=== PATIENT | female | born 1950 | race Caucasian/White ===

== ENCOUNTER 2020-02-24 08:20 | Inpatient (IN) ==
[~2020-02-24 08:20] MED LIST: Buffered Lidocaine 1% SYRIN 1 ml INTRADERM ONE; Dexamethasone IV 4 MG/ML VIAL 1 ml VIAL IV SLOW PU ONE; Famotidine IV 10 MG/ML 2 ml VIAL (20 mg) IV ONE; Lactated Ringers 1000 ml BAG 1,000 ML IV SCH
[2020-02-24] MEDS ORDERED: Famotidine IV 10 MG/ML 2 ml VIAL (20 mg) ONE (08:48)
[2020-02-24] MEDS ORDERED: ceFAZolin 2 GM PREMIX 2 GM/50 ML BAG ONE (08:48)
[2020-02-24] MEDS ORDERED: Dexamethasone IV 4 MG/ML VIAL 1 ml VIAL ONE (08:48)
[2020-02-24] MEDS ORDERED: Acetaminophen IV 1 GM/100ML 1,000 MG/100 ML VIAL IVPB ONE (10:07)
[2020-02-24] MEDS ORDERED: DiMENhydriNATE IV 50 mg/ml 1 ml VIAL IV PUSH PRN (10:07)
[2020-02-24] MEDS ORDERED: HYDROmorphone 1 MG/1 ML SYRINGE IV PRN (10:07)
[2020-02-24] MEDS ORDERED: fentaNYL 100 mcg/2 ml 50 MCG/ML VIAL IV PRN (10:07)
[2020-02-24] MEDS ORDERED: Levalbuterol 0.63MG/3ML NEB UNIT OF USE INH PRN (10:07)
[2020-02-24] MEDS ORDERED: Naloxone 0.4 mg VIAL 0.4 mg/ml 1 ml VIAL IV PRN (10:07)
[2020-02-24] MEDS ORDERED: fentaNYL 100 mcg/2 ml 50 MCG/ML VIAL ONE (10:28)
[2020-02-24] MEDS ORDERED: Midazolam 5 mg/5 ml VIAL 1 mg/ml 5 ml VIAL (5 mg) ONE (10:28)
[2020-02-24] MEDS ORDERED: ROPIVACAINE 5 MG/ML 30 ML BTL (0.5%) ONE ×3 (10:30→12:30)
[2020-02-24] MEDS ORDERED: Propofol 10 MG/ML 20 ML BTL ONE (11:43)
[2020-02-24] MEDS ORDERED: Lidocaine 2% PF 5 ML VIAL ONE (11:43)
[2020-02-24] MEDS ORDERED: EPHEDrine (Pressors) 50 MG/ML VIAL ONE (11:56)
[2020-02-24] MEDS ORDERED: oxyCODONE/Acetamin 5/325 mg TAB PO PRN (13:58)
[2020-02-24] MEDS ORDERED: diPHENhydraMINE 25 mg TAB PO PRN (13:58)
[2020-02-24] MEDS ORDERED: Morphine 2 MG/ML SYRINGE IV PRN (13:58)
[2020-02-24] MEDS ORDERED: Ondansetron ODT 4 mg TAB 4 MG TAB PO PRN (13:58)
[2020-02-24] MEDS ORDERED: diPHENhydraMINE IV 50 MG/ML 1 ml VIAL (BENADRYL) IV PRN (13:58)
[2020-02-24] MEDS ORDERED: Magnesium Hydroxide LIQ 30 ML UDC PO PRN (13:58)
[2020-02-24] MEDS ORDERED: Lactulose 30 ml UDC PO PRN (13:58)
[2020-02-24] MEDS ORDERED: Ondansetron 4 mg VIAL 2 MG/ML 2 ml VIAL IV PRN (13:58)
[2020-02-24] MEDS: Lactated Ringers 1000 ml BAG 1,000 ML IV SCH (15:31)
[2020-02-24] MEDS: oxyCODONE/Acetamin 5/325 mg TAB PO PRN (16:38)
[2020-02-24] MEDS: ceFAZolin 1 GM ADVAN 1 GM in NS 0.9% 50 ML 50 ML IVPB SCH (19:53)
[2020-02-24] MEDS: Magnesium Hydroxide LIQ 30 ML UDC PO SCH (20:21)
[2020-02-24] MEDS: Polyethyl Glycol/Propylene Gly OPHTH.SOLN BOTH EYES SCH (20:27)
[2020-02-25] MEDS: Lactated Ringers 1000 ml BAG 1,000 ML IV SCH (01:22)
[2020-02-25] MEDS: ceFAZolin 1 GM ADVAN 1 GM in NS 0.9% 50 ML 50 ML IVPB SCH ×2 (03:59→12:37)
[2020-02-25] MEDS: oxyCODONE/Acetamin 5/325 mg TAB PO PRN ×2 (05:27→12:37)
[2020-02-25 06:01] LABS: Hematocrit 35 % (35-47); Hemoglobin 12.1 g/dL (12.0-16.0); Mean Platelet Volume 8.2 fL (7.4-10.4); Platelet Count 270 10^3/uL (150-450)
[2020-02-25 06:20] LABS: BUN/Creatinine Ratio 15.3 (8-20); Calcium 8.8 mg/dL (8.6-10.3); EGFR African American 96.6 (>60); EGFR Non-African American 79.9 (>60); Potassium 4.4 mmol/L (3.5-5.0)
[2020-02-25] MEDS: Magnesium Hydroxide LIQ 30 ML UDC PO SCH (07:59)
[2020-02-25] MEDS: Polyethyl Glycol/Propylene Gly OPHTH.SOLN BOTH EYES SCH (08:21)
[2020-02-25] MEDS ORDERED: NS 0.9% 500 ml BAG 500 ML IV ONE (08:43)
[2020-02-25] MEDS ORDERED: Vitamin THERAPEUTIC TAB PO SCH (09:00)
[2020-02-25 15:39] VITALS: BP 101/56
== END 2020-02-25 17:15 | disposition home or self-care (01) | DRG 470 ==
LOC: AA 08:20 → SSU 15:36
PROVIDERS: ADMIT Orthopaedic Surgery Adult Reconstructive Orthopaedic Surgery; ATTEND Orthopaedic Surgery Adult Reconstructive Orthopaedic Surgery